=== PATIENT | male | born 1960 | race Caucasian/White ===

== ENCOUNTER → 2021-03-22 | Outpatient (CLI) | payer BC ==
--- NOTE | 2021-03-22 17:07 | RAD ---
XR FOOT_RIGHT 3 VIEWS History: Reason: RIGHT FOOT PAIN, WORSE IN 2ND AND 3RD TOES / Spl. Instructions: / History: Technique: 3 views right foot Comparison: None. Findings: Irregularity of the second proximal phalanx base with linear lucencies and cortical disruption latera lly. No dislocation. Plantar calcaneal spur. Dorsal calcaneal enthesophytes. Moderate first MTP DJD. Impression: 1. Irregularity of the second proximal phalanx base, may represent nondisplaced fracture. Recommend correlation with point tenderness. 2. Moderate first MTP DJD Electronically signed by: Jorge Alberto Diop DO (03/22/2021 5:04 PM) [facility]
== END ==
LOC: RAD 15:31
PROVIDERS: ATTEND Specialist
DX: M19.071 Primary osteoarthritis, right ankle and foot (principal)
CPT/HCPCS: 73630